=== PATIENT | male | born 2000 | race Two or more races ===

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

== ENCOUNTER 2021-03-22 17:43 | Emergency (ER) | payer OTHER ==
[~2021-03-22] VITALS: Ht 193 cm; Wt 81.6 kg
[~2021-03-22 17:43] MED LIST: KETO10TA2 PO
[2021-03-22] MEDS ORDERED: OMEPRAZOLE20 M1 PO (19:32)
== END 2021-03-22 19:46 | disposition home or self-care (01) ==
LOC: EMR PED 17:43
DX: K29.70 Gastritis, unspecified, without bleeding (principal)

== ENCOUNTER 2023-10-14 10:41 | Emergency (ER) | payer OTHER ==
[~2023-10-14] VITALS: Ht 193 cm; Wt 90.7 kg
[~2023-10-14 10:41] MED LIST changes: +OMEPRAZOLE20 M1 PO
[2023-10-14] MEDS ORDERED: KETOROLAC TROMETHAMINE 30 MG VIAL IM STA (13:13)
[2023-10-14] MEDS ORDERED: KETOROLAC TROMETHAMINE 30 MG VIAL ONE (13:30)
== END 2023-10-14 14:23 | disposition home or self-care (01) ==
LOC: ER 10:42
DX: R07.81 Pleurodynia (principal)

== ENCOUNTER 2024-01-21 05:16 | Emergency (ER) | payer OTHER ==
[~2024-01-21] VITALS: Ht 193 cm; Wt 87.1 kg
== END 2024-01-21 06:48 | disposition home or self-care (01) ==
LOC: ER 05:18
DX: R53.81 Other malaise (principal); G44.209 Tension-type headache, unspecified, not intractable

== ENCOUNTER 2024-03-26 05:45 | Emergency (ER) | payer OTHER ==
[~2024-03-26] VITALS: Ht 193 cm; Wt 88.5 kg
[2024-03-26 08:55] LABS: HEMATOCRIT 43.3 % (39.0-48.0); HEMOGLOBIN 14.8 g/dL (13-16.00); MEAN CORPUSCULAR HEMOGLOBIN 28.3 pg (27.00-32.0); MEAN CORPUSCULAR HGB CONC 34.1 g/dl (32.0-36.0); PLATELET COUNT 187 K/uL (150-450); RED BLOOD COUNT 5.22 M/uL (4.00-6.00); RED CELL DISTRIBUTION WIDTH 13.7 % (11.5-14.5)
[2024-03-26 09:33] LABS: ALBUMIN 3.9 gm/dL (3.4-5.0); BILIRUBIN TOTAL 0.32 mg/dL (0.3-1.2); CALCIUM 8.9 mg/dL (8.5-10.1); CREATININE SERUM 1.02 mg/dL (0.70-1.30); GFR 90.51; GLOBULINA 3.5 G/DL (2.4-3.5); POTASSIUM 3.79 mEq/L (3.5-5.1); TOTAL PROTEIN 7.4 gm/dL (6.4-8.2)
== END 2024-03-26 11:45 | disposition home or self-care (01) ==
LOC: ER 05:47
PROVIDERS: Emergency Medicine
DX: R00.2 Palpitations (principal)